=== PATIENT | female | born 1940 | race Caucasian/White ===

== ENCOUNTER → 2017-03-25 | Outpatient (CLI) | payer MEDICARE ==
--- NOTE | 2017-04-01 06:50 | MM ---
Reason for exam: screening (asymptomatic). Last mammogram was performed 1 year and 4 months ago. History: Patient is postmenopausal. Benign left breast needle localization of the left breast, November 16, 2011. Physical Findings: A clinical breast exam by your physician is recommended on an annual basis and results should be correlated with mammographic findings. MG 3D Screening Mammo W/Cad Bilateral CC and MLO view(s) were taken. Prior study comparison: November 30, 2015, bilateral MG diagnostic mammo w CAD JARED. November 18, 2014, mammogram, performed at [facility]. November 16, 2013, mammogram, performed at [facility]. There are scattered fibroglandular densities. No suspicious abnormality. No significant changes when compared with prior studies. ASSESSMENT: Negative, BI-RAD 1 RECOMMENDATION: Routine screening mammogram of both breasts in 1 year.
== END | disposition home or self-care (01) ==
LOC: RADMAMWWP 15:18
PROVIDERS: ATTEND Family Medicine
DX: Z12.31 Encounter for screening mammogram for malignant neoplasm of breast (principal)
CPT/HCPCS: 77063; G0202

== ENCOUNTER → 2017-07-24 | Outpatient (CLI) | payer MEDICARE ==
--- NOTE | 2017-07-24 10:11 | XR ---
EXAMINATION TYPE: XR lumbar spine 2 or 3V DATE OF EXAM: 07/24/2017 CLINICAL HISTORY: Back pain TECHNIQUE: Frontal and lateral images of the lumbar spine are obtained. COMPARISON: None FINDINGS: There are 5 lumbar type vertebral bodies identified. Mild multilevel degenerative disc di sease of the lumbar spine is identified. These are most pronounced at L5-S1. This is seen as interver tebral disc space narrowing at L4-5 and L5-S1 and facet arthropathy throughout the lumbar spine. The lumbar spine shows satisfactory alignment without evidence of acute fracture or dislocation. Vertebra l body heights and disk space heights are within normal limits. Extensive atheromatous changes are se en of the abdominal aorta and its branches. IMPRESSION: 1. No acute fracture or malalignment is seen in the lumbar spine. 2. Mild multilevel degenerative disc disease most exaggerated at L5-S1. MRI could be performed for fu rther evaluation of neuroforaminal narrowing, spinal canal stenosis or disc herniation.
== END | disposition home or self-care (01) ==
LOC: RADXRMAIN 08:44
PROVIDERS: ATTEND Family Medicine
DX: M51.37 Other intervertebral disc degeneration, lumbosacral region (principal)
CPT/HCPCS: 72100

== ENCOUNTER → 2017-07-25 | Outpatient (CLI) | payer MEDICARE ==
--- NOTE | 2017-07-25 10:41 | US ---
EXAMINATION TYPE: US duplex aorta DATE OF EXAM: 07/25/2017 COMPARISON: CT 2016 CLINICAL HISTORY: I70.0 ATHEROSCLEROSIS OF AORTA. Back pain x 3 weeks EXAM MEASUREMENTS: Abdominal Aorta: Proximal: 2.2 x 2.2cm Mid: 1.5 x 1.5cm Distal: 1.3 x 1.4cm Right Iliac: 0.8 x 1.2cm Left Iliac: 0.8 x 1.2cm Visualized portions of abdominal aorta and proximal iliacs appear wnl. IMPRESSION: No evidence for abdominal aortic aneurysm at this time.
== END | disposition home or self-care (01) ==
LOC: RADUSWWP 10:01
PROVIDERS: ATTEND Family Medicine
DX: I70.0 Atherosclerosis of aorta (principal)
CPT/HCPCS: 93979

== ENCOUNTER → 2017-08-08 | Outpatient (CLI) | payer MEDICARE ==
--- NOTE | 2017-08-08 22:11 | MR ---
EXAMINATION TYPE: MR lumbar spine wo con DATE OF EXAM: 08/08/2017 COMPARISON: NONE HISTORY: Spinal stenosis, lumbar region CONTRAST: 0 mL intravenous Gadavist. TECHNIQUE: Multiplanar, multisequence images of the lumbar spine were acquired. FINDINGS: L5-S1: There is left paracentral focal disc bulge with mild anterior thecal sac compression. No AP sp inal canal stenosis is present. Facet hypertrophy is present. Ligamentum flavum laxity is posterior l ateral thecal sac compression. There is narrowing of the disc height. L4-L5: There is a right paracentral disc herniation extending inferiorly. Facet hypertrophy and ligam entum flavum laxity is present. These are contributing to spinal canal stenosis. Neural foramen appea r patent. L3-L4: There is narrowing of the L3-4 disc height. Mild disc bulge has anterior thecal sac contact. N o AP spinal canal stenosis present. Facet hypertrophy and ligamentum flavum laxity are present. L2-L3: No significant disc bulge or disc herniation. No spinal canal stenosis. No foraminal stenosi s. Mild facet hypertrophy is present. L1-L2: No significant disc bulge or disc herniation. No spinal canal stenosis. No foraminal stenosi s. . T12-L1: No significant disc bulge or disc herniation. No spinal canal stenosis. No foraminal stenos is. . IMPRESSION: 1. Right paracentral disc herniation L4-5 with moderate anterior thecal sac compression. Additionally , facet hypertrophy with ligamentum flavum laxity is present contributing to spinal canal stenosis at this level. 2. Broad-based left paracentral disc bulge L5-S1 with mild anterior thecal sac compression. 3. Degenerative disc changes L3-4 with mild disc bulge and anterior thecal sac contact.
== END | disposition home or self-care (01) ==
LOC: RADMRIMAIN 06:03
PROVIDERS: ATTEND Family Medicine
DX: M48.061 Spinal stenosis, lumbar region without neurogenic claudication (principal); M51.27 Other intervertebral disc displacement, lumbosacral region; M47.816 Spondylosis without myelopathy or radiculopathy, lumbar region
CPT/HCPCS: 72148

== ENCOUNTER → 2018-03-07 | Outpatient (CLI) | payer MEDICARE ==
[2018-03-07 10:08] LABS: Anisocytosis Slight; Basophils % (A) 0 %; Eosinophils # (A) 0.2 k/uL (0-0.7); Eosinophils % (A) 3 %; HCT 36.1 % (34.0-46.0); Hypochromasia Moderate; Lymphocytes # (A) 1.4 k/uL (1.0-4.8); Lymphocytes % (A) 24 %; MCH 25.8 pg (25.0-35.0); MCHC 30.5 g/dL (31.0-37.0); MCV 84.8 fL (80.0-100.0); Mean Platelet Volume 6.7; Monocytes # (A) 0.4 k/uL (0-1.0); Monocytes % (A) 6 %; Neutrophils % (A) 65 %; Platelet Count 273 k/uL (150-450); RBC 4.25 m/uL (3.80-5.40); RDW 16.6 % (11.5-15.5); WBC 6.1 k/uL (3.8-10.6)
[2018-03-07 10:10] LABS: Appearance,Urine Clear (Clear); Bilirubin,Urine Negative (Negative); Blood,Urine Negative (Negative); Color,Urine Yellow; Glucose,Urine (UA) Negative (Negative); Ketones,Urine Negative (Negative); Leukocyte Esterase,Urine Negative (Negative); Nitrite,Urine Negative (Negative); PH, Urine 5.5 (5.0-8.0); Protein,Urine Negative (Negative); Specific Gravity,Urine 1.017 (1.001-1.035); Urobilinogen,Urine <2.0 mg/dL (<2.0)
[2018-03-07 10:16] LABS: Partial Thromboplastin Time 24.5 sec (22.0-30.0); Prothrombin Time 9.8 sec (9.0-12.0)
[2018-03-07 10:17] LABS: Calcium 9.3 mg/dL (8.4-10.2); Potassium 4.2 mmol/L (3.5-5.1)
--- NOTE | 2018-03-07 16:43 | XR ---
EXAMINATION TYPE: XR chest 2V DATE OF EXAM: 03/07/2018 COMPARISON: 05/12/2015 INDICATION: Presurgical clearance TECHNIQUE: Frontal and lateral views of the chest are obtained. FINDINGS: The heart size is normal. The pulmonary vasculature is normal. Minimal linear opacities in the periphery of the right midlung may be a chronic minor fissure thicken ing. Suspicious consolidation is not identified. IMPRESSION: 1. No acute pulmonary process.
== END | disposition home or self-care (01) ==
LOC: LABPAT 09:18
PROVIDERS: ATTEND Orthopaedic Surgery Orthopaedic Surgery of the Spine
DX: Z01.818 Encounter for other preprocedural examination (principal); M51.26 Other intervertebral disc displacement, lumbar region; Z01.812 Encounter for preprocedural laboratory examination
CPT/HCPCS: 36415; 71046; 80048; 81003; 85025; 85610; 85730

== ENCOUNTER → 2018-05-30 | Outpatient (CLI) | payer MEDICARE ==
--- NOTE | 2018-06-02 07:38 | BD ---
EXAMINATION TYPE: Axial Bone Density DATE OF EXAM: 05/30/2018 COMPARISON: 11.30.2015 CLINICAL HISTORY: 77 YR OLD FEMALE....ICD-10 CODE: M81.0 AGE RELATED OSTEOPOROSIS Height: 59 Weight: 134 FRAX RISK QUESTIONS: Current Tobacco Use: YES RISK FACTORS HISTORY OF: Surgery to Spine...YES LAMINECTOMY, MAR 17 2018 Postmenopausal woman: 53 YRS OLD Lost more than 2 inches in height since high school: YES MEDICATIONS: Thyroid Medications: YES, SINGULAIR, 20+ YRS Additional Medications: ORAL DIABETIC MEDS, CALCIUM AND VIT D, REFLUX MEDS, STATINS FOR CHOLESTEROL Additional History: DIABETIC, CHOLESTEROL, REFLUX EXAM MEASUREMENTS: Bone mineral densitometry was performed using the [employer] System. HX OF LAMINECTOMY....2018...LUMBAR NOT SCANNED Bone mineral density about the R hip (g/cm2): 0.887 Bone mineral density about the L hip (g/cm2): 0.909 T Score values are as follows: -----R Neck: -1.4 -----L Neck: -1.4 -----R Total: -1.0 -----L Total: -0.8 Bone mineral density has: Decreased -1.9% SINCE 11.30.2015 SCAN FRAX%s: THERE IS A 12.4% CHANCE FOR A MAJOR OSTEOPOROTIC FX AND A 4.0% FOR HIP....PROBABILITY OF F X IN 10 YRS TIME Bone mineral density about the L Wrist (g/cm2): 0.511 T Score values are as follows: -----Dist. R+U: -1.7 -----Prox. R+U: -1.8 -----Radius total: -2.5 Bone mineral density FIRST BONE DENSITY SCAN FOR FOREARM IMPRESSION: Osteopenia about the left wrist. NOTE: T-SCORE=SD OF THE YOUNG ADULT MEAN.
--- NOTE | 2018-06-03 07:50 | MM ---
Reason for exam: screening (asymptomatic). Last mammogram was performed 1 year and 2 months ago. History: Patient is postmenopausal. Benign left breast needle localization of the left breast, November 16, 2011. Physical Findings: A clinical breast exam by your physician is recommended on an annual basis and results should be correlated with mammographic findings. MG 3D Screening Mammo W/Cad Bilateral CC and MLO view(s) were taken. Prior study comparison: March 25, 2017, bilateral MG 3d screening mammo w/cad. November 30, 2015, bilateral MG diagnostic mammo w CAD JARED. There are scattered fibroglandular densities. No significant changes when compared with prior studies. ASSESSMENT: Negative, BI-RAD 1 RECOMMENDATION: Routine screening mammogram of both breasts in 1 year.
== END | disposition home or self-care (01) ==
LOC: RADMAMWWP 12:42
PROVIDERS: ATTEND Family Medicine
DX: Z12.31 Encounter for screening mammogram for malignant neoplasm of breast (principal); M85.832 Other specified disorders of bone density and structure, left forearm
CPT/HCPCS: 77063; 77067; 77080

== ENCOUNTER 2018-06-27 06:52 | Day surgery (SDC) | payer MEDICARE ==
[2018-06-25 10:10] VITALS: BMI 26.2
[~2018-06-27 06:52] MED LIST: LACTATED RINGERS 1,000 ML IV SCH
[2018-06-27 07:22] VITALS: RESP 16; TEMP 98
[2018-06-27] MEDS ORDERED: PROPOFOL 10 MG/ML 20 ML VIAL IV ONE (07:55)
[2018-06-27] MEDS ORDERED: LIDOCAINE 1% INJ 10MG/ML (20 ML MDV) ONE (07:55)
--- NOTE | 2018-06-27 08:12 | P.PCN ---
Date of Procedure: 06/27/18 Procedure(s) Performed: BRIEF HISTORY: Patient is a 77-year-old, pleasant, white female, scheduled for an upper endoscopy as a part of surveillance of Kim's esophagus. 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 She has long-standing history of GERD and remains on omeprazole 20 mg daily and doing well.. PROCEDURE PERFORMED: Esophagogastroduodenoscopy with biopsy. PREOPERATIVE DIAGNOSIS: Surveillance of Kim's esophagus/history of GERD. IV sedation per anesthesia. PROCEDURE: After informed consent was obtained, the patient was brought into the endoscopy unit. IV sedation was administered by Anesthesia under continuous monitoring. Initially the Olympus GIF-140 video endoscope was inserted into the mouth. Esophagus intubated without any difficulty. It was gradually advanced into the stomach and duodenum and carefully examined. The bulb and the second part of the duodenum appeared normal. The scope at this time was withdrawn to the stomach, adequately insufflated with air, and upon careful examination, mucosa of the antrum, body, cardia and the fundus appeared normal. The scope was then withdrawn into the esophagus. The GE junction was located at 34 cm from the incisors. Moderate size hiatal hernia noted. There was a 2 mm island of Kim's appearing mucosa just proximal to the GE junction and this was biopsied. The rest of the esophagus appeared normal. There were no erosions or ulcerations seen and the patient tolerated the procedure well. IMPRESSION: 1. 2 mm island of Kim's appearing mucosa just proximal to the GE junction status post biopsy. 2. Small to moderate size hiatal hernia. RECOMMENDATIONS: The findings of this examination were discussed with the patient as well as a family. She was advised to follow with the biopsy results. She will continue with omeprazole 20 mg daily and follow antireflux measures..
[2018-06-27 08:29] VITALS: BP 111/71; PULSE 75
[2018-06-27 11:55] LABS: Glucose,Whole Blood 103 mg/dL (75-99)
== END 2018-06-27 08:52 | disposition home or self-care (01) ==
LOC: ORWHC2ENDO 06:52
PROVIDERS: ATTEND Internal Medicine Gastroenterology
DX: K22.70 Barrett's esophagus without dysplasia (principal); K21.0 Gastro-esophageal reflux disease with esophagitis; K44.9 Diaphragmatic hernia without obstruction or gangrene; E78.5 Hyperlipidemia, unspecified; J44.9 Chronic obstructive pulmonary disease, unspecified; E11.9 Type 2 diabetes mellitus without complications; E07.9 Disorder of thyroid, unspecified; Z79.84 Long term (current) use of oral hypoglycemic drugs; Z79.899 Other long term (current) drug therapy; Z88.0 Allergy status to penicillin
CPT/HCPCS: 88305; 43239; J2001; J2704

== ENCOUNTER → 2018-09-12 | Outpatient (CLI) | payer MEDICARE ==
--- NOTE | 2018-09-12 09:59 | CT ---
EXAMINATION TYPE: CT soft tissue neck w con DATE OF EXAM: 09/12/2018 HISTORY: Soft tissue neck mass per order. Swallowing neck and face for 3 days per patient. COMPARISON: NONE CT DLP: 321 mGycm. Automated Exposure Control for Dose Reduction was Utilized. TECHNIQUE: CT scan of the neck is performed with IV Contrast, patient injected with 100 ml mL of Iso nicolas 300, axial images are obtained, coronal and sagittal reformatted images are reviewed. FINDINGS: Airway: Thyroid gland is small in size and heterogeneous with 4 mm calcified nodule laterally right t hyroid lobe axial image 44. There is mild to moderate emphysematous change in visualized upper lungs with mild peripheral fibrosis bilaterally. Parotid/submandibular glands: No gross abnormality seen. Carotid/Vascular Structures: With mild to moderate mixed plaque in aortic arch extends into branch ve ssels. There is mild calcified plaque proximal internal carotid arteries bilaterally. No significant stenosis is evident bilaterally. Patent draining internal jugular veins are noted bilaterally. Osseous Structures: Mild to moderate disc space narrowing and spurring C4-C5 and C5-C6 levels is pres ent. There is dextroconvex scoliosis centered in the upper thoracic spine. Other: No suspicious greater than 1 cm neck adenopathy is present. No suspicious fluid collection is present. IMPRESSION: No suspicious mass or adenopathy. No suspicious focal fluid collection.
== END | disposition home or self-care (01) ==
LOC: RADCTMAIN 07:03
PROVIDERS: ATTEND Family Medicine
DX: M79.9 Soft tissue disorder, unspecified (principal)
CPT/HCPCS: 82565; 84520; 70491; 36415; Q9967

== ENCOUNTER → 2018-09-19 | Outpatient (CLI) | payer MEDICARE ==
--- NOTE | 2018-09-19 08:21 | CT ---
EXAMINATION TYPE: CT brain w con DATE OF EXAM: 09/19/2018 COMPARISON: 09/12/2018 HISTORY: Lt Facial and neck swelling CT DLP: 1054.2 mGycm Automated Exposure Control for Dose Reduction was Utilized. TECHNIQUE: CT scan of the head is performed with IV contrast.,CT scan of the head is performed withou t and with with IV Contrast, patient injected with 50 mL of Isovue 300. FINDINGS: The ventricles and sulci are symmetrically prominent compatible with age-related volume l oss. Postcontrast images show no suspicious enhancing intraparenchymal mass. No midline shift or mass effect is seen. Patchy areas of hypoattenuation are seen within the subcortical and periventricular white matter most confluent in the shelby radiata and also seen within the right devika. There is right bear nasal septal deviation and very small avery bullosa. Minimal mucosal thickening is seen within the ethmoid sinuses. Remaining paranasal sinuses and mastoid air cells are well aerated. Calvarium is intact. Globes are unremarkable. Visualized portions of the facial soft tissues appear symmetric and unremarkable. IMPRESSION: 1. No abnormal intracranial enhancement, mass effect or midline shift. 2. 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 3. Visualized portions of the facial soft tissues appear symmetric and unremarkable in this patient w ith left facial swelling.
== END ==
LOC: RADCTMAIN 06:08
PROVIDERS: ATTEND Family Medicine
DX: R90.89 Other abnormal findings on diagnostic imaging of central nervous system (principal); R22.1 Localized swelling, mass and lump, neck
CPT/HCPCS: 82565; 84520; 70460; 36415; Q9967

== ENCOUNTER → 2019-07-03 | Outpatient (CLI) | payer MEDICARE ==
--- NOTE | 2019-07-03 09:38 | US ---
EXAMINATION TYPE: US duplex aorta DATE OF EXAM: 07/03/2019 COMPARISON: NONE CLINICAL HISTORY: I70.0 Atherosclerois of aorta. no symptoms, h/o smoker EXAM MEASUREMENTS: Abdominal Aorta: Proximal: 2.2 x 2.7cm Mid: 1.8 x 1.3cm Distal: 1.0 x 1.2cm Bifurcation: 0.9cm 0.7cm Mild atherosclerosis throughout. No sonographic evidence of abdominal aortic aneurysm. IMPRESSION: Mild atherosclerosis with no sonographic evidence of abdominal aortic aneurysm in the vis ualized portions of the abdominal aorta.
--- NOTE | 2019-07-03 14:34 | MM ---
Reason for exam: screening (asymptomatic). Last mammogram was performed 1 year and 1 month ago. History: Patient is postmenopausal. Benign left breast needle localization of the left breast, November 16, 2011. Physical Findings: A clinical breast exam by your physician is recommended on an annual basis and results should be correlated with mammographic findings. MG 3D Screening Mammo W/Cad Bilateral CC and MLO view(s) were taken. Prior study comparison: May 30, 2018, bilateral MG 3d screening mammo w/cad. March 25, 2017, bilateral MG 3d screening mammo w/cad. There are scattered fibroglandular densities. There are benign vascular calcifications bilaterally. No suspicious abnormality. Post surgical change on the left. No significant changes when compared with prior studies. ASSESSMENT: Benign, BI-RAD 2 RECOMMENDATION: Routine screening mammogram of both breasts in 1 year.
== END | disposition home or self-care (01) ==
LOC: RADUSWWP 08:53
PROVIDERS: ATTEND Family Medicine
DX: Z12.31 Encounter for screening mammogram for malignant neoplasm of breast (principal); I70.0 Atherosclerosis of aorta
CPT/HCPCS: 77063; 77067; 93979

== ENCOUNTER 2020-04-15 06:42 | Day surgery (SDC) | payer MEDICARE ==
[2020-04-13 13:50] VITALS: BMI 22.8
[2020-04-15 07:07] VITALS: RESP 16; TEMP 98.5
[2020-04-15] MEDS ORDERED: LIDOCAINE 1% (10MG/ML) FOR IV START INTRADERMA ONE (07:10)
[2020-04-15 07:12] LABS: Glucose,Whole Blood 101 mg/dL (75-99)
[2020-04-15] MEDS ORDERED: LIDOCAINE 1% INJ 10MG/ML (20 ML MDV) ONE (07:29)
[2020-04-15] MEDS ORDERED: PROPOFOL 10 MG/ML 20 ML VIAL IV ONE (07:29)
--- NOTE | 2020-04-15 07:47 | P.PCN ---
Date of Procedure: 04/15/20 Procedure(s) Performed: BRIEF HISTORY: Patient is a 79-year-old, pleasant, male scheduled for an upper endoscopy as a part of surveillance of short segment Kim's esophagus noted on upper endoscopy 2 years ago.. Patient with long-standing history of GERD maintained on PPIs and doing well. PROCEDURE PERFORMED: Esophagogastroduodenoscopy with biopsy. PREOPERATIVE DIAGNOSIS: Surveillance of short segment Kim's esophagus. IV sedation per anesthesia. PROCEDURE: After informed consent was obtained, the patient was brought into the endoscopy unit. IV sedation was administered by Anesthesia under continuous monitoring. Initially the Olympus GIF-140 video endoscope was inserted into the mouth. Esophagus intubated without any difficulty. It was gradually advanced into the stomach and duodenum and carefully examined. The bulb and the second part of the duodenum appeared normal. The scope at this time was withdrawn to the stomach, adequately insufflated with air, and upon careful examination, mucosa of the antrum, body, cardia and the fundus appeared normal. The scope was then withdrawn into the esophagus. Small to moderate size hiatal hernia noted. The GE junction was located at 37 cm from the incisors. The esophagus appeared normal. There were no erosions or ulcerations seen . No obvious of Kim's esophagus identified. Biopsies were done from the distal esophagus and the patient tolerated the procedure well. IMPRESSION: 1. Small to moderate size hiatal hernia. 2. No obvious Kim's esophagus identified. RECOMMENDATIONS: The findings of this examination were discussed with the patient is well as her family. She was advised to continue current medications. She'll follow with the biopsy results. No need for repeat surveillance upper endoscopy as no obvious Kim's esophagus identified..
[2020-04-15 08:19] VITALS: BP 118/89; PULSE 85
== END 2020-04-15 08:44 | disposition home or self-care (01) ==
LOC: ORWHC2ENDO 06:42
PROVIDERS: ATTEND Internal Medicine Gastroenterology
DX: K21.00 Gastro-esophageal reflux disease with esophagitis, without bleeding (principal); K44.9 Diaphragmatic hernia without obstruction or gangrene; I10 Essential (primary) hypertension; E78.5 Hyperlipidemia, unspecified; J44.9 Chronic obstructive pulmonary disease, unspecified; F17.210 Nicotine dependence, cigarettes, uncomplicated; E11.9 Type 2 diabetes mellitus without complications; F32.9 Major depressive disorder, single episode, unspecified; Z79.82 Long term (current) use of aspirin; Z88.0 Allergy status to penicillin; Z79.890 Hormone replacement therapy; Z79.84 Long term (current) use of oral hypoglycemic drugs; Z79.899 Other long term (current) drug therapy; Z98.890 Other specified postprocedural states
CPT/HCPCS: 88305; 43239; J2001; J2704

== ENCOUNTER → 2020-05-24 | Outpatient (CLI) | payer MEDICARE ==
--- NOTE | 2020-05-25 10:48 | XR ---
EXAMINATION TYPE: XR lumbosacral spine min 4V DATE OF EXAM: 05/24/2020 COMPARISON: 07/24/2017 HISTORY: Pain TECHNIQUE: Five-view lumbar spine FINDINGS: There 5 lumbar-type vertebral bodies. The pedicles are intact. Facet degenerative changes a re present L3-4 through L5-S1. Subtle spondylolysis of L4 may be present on the right. There is loss of disc height posteriorly at L3-4. Loss of disc height is also present L4-5 L5-S1. Vascular calcific ation is within the aorta. IMPRESSION: 1. Degenerative disc changes L4-5 L5-S1 and posteriorly L3-4. 2. Subtle spondylolysis of L5 4 on the right may be present.
== END | disposition home or self-care (01) ==
LOC: RAD 16:19
PROVIDERS: ATTEND Family Medicine
DX: M51.37 Other intervertebral disc degeneration, lumbosacral region (principal); M54.32 Sciatica, left side
CPT/HCPCS: 72110

== ENCOUNTER → 2021-05-19 | Outpatient (CLI) | payer MEDICARE ==
--- NOTE | 2021-05-19 15:02 | US ---
EXAMINATION TYPE: US kidneys/renal and bladder DATE OF EXAM: 05/19/2021 COMPARISON: NONE CLINICAL HISTORY: R79.89 Azotemia. EXAM MEASUREMENTS: Right Kidney: 10.0 x 4.3 x 4.3 cm Left Kidney: 9.4 x 3.4 x 3.7 cm Right Kidney: No hydronephrosis or masses seen, lobular contour Left Kidney: No hydronephrosis or masses seen, lobular contour Bladder: wnl Bilateral Jets seen: Yes IMPRESSION: 1. Normal renal ultrasound
== END ==
LOC: RADUSWWP 14:10
PROVIDERS: ATTEND Family Medicine
DX: R79.89 Other specified abnormal findings of blood chemistry (principal)
CPT/HCPCS: 76770

== ENCOUNTER → 2023-08-01 | Outpatient (CLI) | payer MEDICARE ==
--- NOTE | 2023-08-01 21:13 | US ---
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 dilated renal pelvis Left Kidney: lobulated contour. no evidence of hydronephrosis Bladder: appears wnl Bilateral Jets seen: no Normal Post Void Residual: yes, 15 mL. IMPRESSION: 1. Normal renal ultrasound
== END | disposition home or self-care (01) ==
LOC: RADUSWWP 07:27
PROVIDERS: ATTEND Internal Medicine Nephrology
DX: N18.31 Chronic kidney disease, stage 3a (principal)
CPT/HCPCS: 76770

== ENCOUNTER → 2023-10-18 | Outpatient (CLI) | payer MEDICARE ==
[2023-10-18 16:39] LABS: Appearance,Urine Clear (Clear); Bilirubin,Urine Negative (Negative); Blood,Urine Negative (Negative); Color,Urine Yellow (Yellow); Ketones,Urine Negative (Negative); Nitrite,Urine Negative (Negative); PH, Urine 5.5; Specific Gravity,Urine 1.016 (1.001-1.030); Urobilinogen,Urine 0.2 E.U./DL
[2023-10-18 17:04] LABS: Bacteria,Urine 1+ (None Seen)
[2023-10-18 17:06] LABS: Basophils # (A) 0.05 X 10*3/uL (0.00-0.10); Basophils % (A) 0.7 %; Eosinophils # (A) 0.13 X 10*3/uL (0.04-0.35); Eosinophils % (A) 1.8 %; HCT 40.5 % (37.2-46.3); HGB 12.4 g/dL (12.0-15.0); Lymphocytes # (A) 1.43 X 10*3/uL (0.90-5.00); Lymphocytes % (A) 19.8 %; MCH 30.2 pg (27.0-32.0); MCHC 30.6 g/dL (32.0-37.0); MCV 98.8 FL (80.0-97.0); Mean Platelet Volume 9.7 FL (9.5-12.2); Monocytes # (A) 0.47 X 10*3/uL (0.20-1.00); Monocytes % (A) 6.5 %; NRBC Per 100 WBC 0 X 10*3/uL (0.00-0.01); Neutrophils # (A) 5.12 X 10*3/uL (1.80-7.70); Neutrophils % (A) 70.6 %; Platelet Count 267 X 10*3/uL (140-440); RDW 14.4 % (11.5-14.5); WBC 7.24 X 10*3/uL (4.50-10.00)
[2023-10-18 17:15] LABS: Blood Urea Nitrogen 16.7 mg/dL (9.0-27.0); Calcium 9.7 mg/dL (8.7-10.3); Carbon Dioxide 23.9 mmol/L (21.6-31.8); Chloride 105 mmol/L (96-109); Ferritin 36.5 ng/mL (10.0-291.0); Glucose 91 mg/dL (70-110); Iron 60 UG/DL (50-170); Potassium 4.7 mmol/L (3.5-5.5); Sodium 140 mmol/L (135-145); Total Iron Binding Capacity 337 UG/DL (228-460)
[2023-10-18 18:29] LABS: Microalbumin Creatinine Ratio <12 mg/g Cr (0-30)
== END | disposition home or self-care (01) ==
LOC: LABWHC1 09:56
PROVIDERS: ATTEND Nurse Practitioner Family
DX: E55.9 Vitamin D deficiency, unspecified (principal); N18.31 Chronic kidney disease, stage 3a; N39.0 Urinary tract infection, site not specified; R80.9 Proteinuria, unspecified
CPT/HCPCS: 36415; 80048; 81001; 82043; 82306; 82570; 82728; 83540; 83550; 85025

== ENCOUNTER → 2023-11-25 | Outpatient (CLI) | payer MEDICARE ==
--- NOTE | 2023-11-25 16:21 | XR ---
EXAMINATION TYPE: XR chest 2V DATE OF EXAM: 11/25/2023 3:51 PM CLINICAL INDICATION:Female, 83 years old with history of J44.9 CHRONIC OBSTRUCTIVE PULMONARY DISEASE, UNSPE; [facility] COMPARISON: Chest radiographs from 03/07/2018 TECHNIQUE: XR chest 2V Frontal view of the chest. FINDINGS: Lungs/Pleura: There is flattening of the diaphragm with increased lucency of the lungs. No evidence o f pneumothorax, pleural effusion or focal consolidation. Pulmonary vascularity: Unremarkable. Heart/mediastinum: Cardiomediastinal silhouette is unremarkable. Musculoskeletal: No acute osseous pathology. IMPRESSION: 1. No acute cardiopulmonary disease process. 2. COPD changes.
== END | disposition home or self-care (01) ==
LOC: RADXRMAIN 15:34
PROVIDERS: ATTEND Family Medicine
DX: J44.9 Chronic obstructive pulmonary disease, unspecified (principal)
CPT/HCPCS: 71046

== ENCOUNTER → 2023-11-25 | Outpatient (CLI) | payer MEDICARE ==
--- NOTE | 2023-11-26 13:44 | MM ---
Reason for Exam: Screening (asymptomatic). Last screening mammogram was performed 12 month(s) ago. Patient History: Menarche at age 13. First Full-Term at age 24. Postmenopausal. 11/16/2011, Benign Excisional Biopsy on the left side. Risk Values: Rosie 5 year model risk: 1.7%. NCI Lifetime model risk: 2.2%. Prior Study Comparison: 05/30/2018 Bilateral Screening Mammogram, [facility]. 07/03/2019 Bilateral Screening Mammogram, [facility]. 11/22/2022 Bilateral MG 3D screening mammo w/cad, [facility]. Tissue Density: There are scattered areas of fibroglandular density. Findings: Analyzed By CAD. There is no suspicious group of microcalcifications or new suspicious mass in either breast. Overall Assessment: Benign, BI-RAD 2 Management: Screening Mammogram of both breasts in 1 year. . Patient should continue monthly self-breast exams. A clinical breast exam by your physician is recommended on an annual basis. This exam should not preclude additional follow-up of suspicious palpable abnormalities. Note on Rosie scores and lifetime risk: 1. A Rosie score greater than 3% is considered moderate risk. If this is the case, consider specialist referral to assess eligibility for a risk reducing agent. 2. If overall lifetime risk for the development of breast cancer is 20% or higher, the patient may qualify for future screening with alternating mammogram and breast MRI. Electronically signed and approved by: Perry Azul M.D. Radiologis
== END | disposition home or self-care (01) ==
LOC: RADMAMWWP 14:56
PROVIDERS: ATTEND Family Medicine
DX: Z12.31 Encounter for screening mammogram for malignant neoplasm of breast (principal); R92.323 Mammographic fibroglandular density, bilateral breasts; Z78.0 Asymptomatic menopausal state
CPT/HCPCS: 77063; 77067

== ENCOUNTER → 2024-01-17 | Outpatient (CLI) | payer MEDICARE ==
[2024-01-17 15:10] LABS: Basophils # (A) 0.06 X 10*3/uL (0.00-0.10); Eosinophils # (A) 0.18 X 10*3/uL (0.04-0.35); HCT 38.2 % (37.2-46.3); HGB 11.9 g/dL (12.0-15.0); Lymphocytes # (A) 1.17 X 10*3/uL (0.90-5.00); Lymphocytes % (A) 19.4 %; MCH 30.8 pg (27.0-32.0); MCHC 31.2 g/dL (32.0-37.0); Monocytes # (A) 0.57 X 10*3/uL (0.20-1.00); Monocytes % (A) 9.4 %; NRBC Per 100 WBC 0 X 10*3/uL (0.00-0.01); Neutrophils # (A) 4.03 X 10*3/uL (1.80-7.70); Neutrophils % (A) 66.7 %; Platelet Count 230 X 10*3/uL (140-440); RBC 3.86 X 10*6/uL (4.10-5.20); RDW 14.1 % (11.5-14.5); WBC 6.04 X 10*3/uL (4.50-10.00)
[2024-01-17 15:21] LABS: ALT 37 U/L (8-44); AST 37 U/L (13-35); Albumin 3.9 g/dL (3.8-4.9); Albumin/Globulin Ratio 1.56 Ratio (1.60-3.17); Alkaline Phosphatase 75 U/L (41-126); Blood Urea Nitrogen 20.9 mg/dL (9.0-27.0); Calcium 9.4 mg/dL (8.7-10.3); Carbon Dioxide 24.5 mmol/L (21.6-31.8); Chloride 107 mmol/L (96-109); Chol/HDL Ratio 2.43 Ratio; Globulin 2.5 g/dL (1.6-3.3); Glucose 98 mg/dL (70-110); LDL Cholesterol,Calculated 61.3 mg/dL (0.0-131.0); Potassium 4.9 mmol/L (3.5-5.5); Sodium 142 mmol/L (135-145); Total Bilirubin 0.3 mg/dL (0.3-1.2); Total Protein 6.4 g/dL (6.2-8.2); VLDL Calculation 14.56 mg/dL (5.00-40.00)
== END | disposition home or self-care (01) ==
LOC: LABWHC1 09:32
PROVIDERS: ATTEND Family Medicine
DX: Z00.00 Encounter for general adult medical examination without abnormal findings
CPT/HCPCS: 36415; 80053; 80061; 83036; 85025

== ENCOUNTER → 2024-04-17 | Outpatient (CLI) | payer MEDICARE ==
[2024-04-17 15:28] LABS: % Iron Saturation 17.54 (12.00-45.00); ALT 32 U/L (8-44); AST 40 U/L (13-35); Albumin 4.1 g/dL (3.8-4.9); Albumin/Globulin Ratio 1.64 Ratio (1.60-3.17); Alkaline Phosphatase 72 U/L (41-126); Calcium 9.3 mg/dL (8.7-10.3); Carbon Dioxide 24.8 mmol/L (21.6-31.8); Chloride 105 mmol/L (96-109); Chol/HDL Ratio 2.19 Ratio; Ferritin 37.3 ng/mL (10.0-291.0); Globulin 2.5 g/dL (1.6-3.3); Glucose 95 mg/dL (70-110); Iron 60 UG/DL (50-170); LDL Cholesterol,Calculated 55.6 mg/dL (0.0-131.0); Magnesium 1.9 mg/dL (1.5-2.4); Phosphorus 3.6 mg/dL (2.4-5.1); Potassium 4.8 mmol/L (3.5-5.5); Sodium 140 mmol/L (135-145); Total Bilirubin 0.3 mg/dL (0.3-1.2); Total Iron Binding Capacity 342 UG/DL (228-460); Total Protein 6.6 g/dL (6.2-8.2); Uric Acid 6.5 mg/dL (2.9-7.7); VLDL Calculation 13.42 mg/dL (5.00-40.00)
[2024-04-17 17:07] LABS: Basophils # (A) 0.06 X 10*3/uL (0.00-0.10); Basophils % (A) 0.9 %; Eosinophils # (A) 0.19 X 10*3/uL (0.04-0.35); Eosinophils % (A) 2.9 %; HCT 42.1 % (37.2-46.3); HGB 12.6 g/dL (12.0-15.0); Lymphocytes # (A) 1.29 X 10*3/uL (0.90-5.00); Lymphocytes % (A) 19.5 %; MCH 30.1 pg (27.0-32.0); MCHC 29.9 g/dL (32.0-37.0); MCV 100.5 FL (80.0-97.0); Mean Platelet Volume 10.4 FL (9.5-12.2); Monocytes % (A) 7.6 %; NRBC Per 100 WBC 0 X 10*3/uL (0.00-0.01); Neutrophils # (A) 4.53 X 10*3/uL (1.80-7.70); Neutrophils % (A) 68.5 %; Platelet Count 230 X 10*3/uL (140-440); RBC 4.19 X 10*6/uL (4.10-5.20); RDW 13.9 % (11.5-14.5); WBC 6.61 X 10*3/uL (4.50-10.00)
[2024-04-17 19:12] LABS: Microalbumin Creatinine Ratio <17 mg/g Cr (0-30); Urine Creatinine 71.6 mg/dL (28.0-217.0)
== END | disposition home or self-care (01) ==
LOC: LABWHC1 09:06
PROVIDERS: ATTEND Internal Medicine Nephrology
DX: E11.22 Type 2 diabetes mellitus with diabetic chronic kidney disease (principal); N18.31 Chronic kidney disease, stage 3a; D63.1 Anemia in chronic kidney disease; E55.9 Vitamin D deficiency, unspecified; N25.81 Secondary hyperparathyroidism of renal origin; E11.65 Type 2 diabetes mellitus with hyperglycemia; M10.9 Gout, unspecified; R80.9 Proteinuria, unspecified
CPT/HCPCS: 36415; 80053; 80061; 82043; 82306; 82570; 82728; 83036; 83540; 83550; 83735; 83970; 84100; 84550; 85025